=== PATIENT | male | born 1970 | race Caucasian/White ===

== ENCOUNTER 2017-10-16 16:10 | Inpatient (IN) | payer BC ==
[2017-10-16 20:12] LABS: ADD MAN DIFF? NO
[2017-10-16 20:14] LABS: BASOPHILS % 0.2 % (0.0-2.0); EOSINOPHILS # 0.1 10^3/ul (0.0-0.5); EOSINOPHILS % 0.4 % (0.0-7.0); HEMATOCRIT 41.3 % (42.0-52.0); HEMOGLOBIN 14.3 g/dl (14.0-18.0); LYMPHOCYTES % 12.6 % (15.0-51.0); MEAN CORPUSCULAR HEMOGLOBIN 28.8 pg (29.0-33.0); MEAN CORPUSCULAR HGB CONC 34.6 g/dl (32.0-37.0); MEAN CORPUSCULAR VOLUME 83.3 fl (82.0-101.0); MONOCYTES % 6.1 % (0.0-11.0); NEUTROPHIL # 12.9 10^3/ul (1.6-7.5); NEUTROPHILS % 80.4 % (39.0-77.0); PLATELET COUNT 340 10^3/UL (140-415); RED BLOOD COUNT 4.96 10^6/ul (4.70-6.10); RED CELL DISTRIBUTION WIDTH 12.8 % (11.5-14.5)
[2017-10-16] MEDS: morphine 4 MG/ML VIAL IV (20:15)
[2017-10-16] MEDS: SOD CHLORIDE 0.9% 1,000 ML IV (20:15)
[2017-10-16] MEDS: ONDANSETRON 4 MG INJ IV (20:15)
[2017-10-16 20:18] LABS: ADD UMIC YES; UR ASCORBIC ACID NEGATIVE (NEGATIVE); UR BILIRUBIN (Dip) NEGATIVE (NEGATIVE); UR BLOOD (Dip) 1+ mg/dL (NEGATIVE); UR CLARITY CLEAR (CLEAR); UR COLOR YELLOW (YELLOW); UR GLUCOSE (Dip) NEGATIVE (NEGATIVE); UR KETONES (Dip) NEGATIVE (NEGATIVE); UR LEUKOCYTE ESTERASE (Dip) NEGATIVE Leu/ul (NEGATIVE); UR NITRITE (Dip) NEGATIVE (NEGATIVE); UR RBC 1 /HPF (0-5); UR SPECIFIC GRAVITY (Dip) 1.025 (1.003-1.030); UR TOTAL PROTEIN (Dip) NEGATIVE (NEGATIVE); UR UROBILINOGEN (Dip) NEGATIVE (NEGATIVE); UR WBC 1 /HPF (0-5)
[2017-10-16 20:31] LABS: ALANINE AMINOTRANSFERASE 75 IU/L (13-69); ALBUMIN 4.3 g/dl (3.3-4.9); ALBUMIN/GLOBULIN RATIO 1.16; ALKALINE PHOSPHATASE 83 IU/L (42-121); ANION GAP 17 (8-16); ASPARTATE AMINO TRANSFERASE 46 IU/L (15-46); BILIRUBIN,INDIRECT 0.1 mg/dl (0-1.1); BILIRUBIN,TOTAL 0.1 mg/dl (0.2-1.3); BLOOD UREA NITROGEN 19 mg/dl (7-20); CALCIUM 9.3 mg/dl (8.4-10.2); CARBON DIOXIDE 28 mmol/L (21-31); CHLORIDE 103 mmol/L (97-110); CREATININE 0.85 mg/dl (0.61-1.24); GLUCOSE 124 mg/dl (70-220); LIPASE 110 U/L (23-300); POTASSIUM 3.6 mmol/L (3.5-5.1); SODIUM 144 mmol/L (135-144)
[2017-10-16] MEDS: SOD CHLORIDE 0.9% 100 ML (21:02)
[2017-10-16] MEDS: IOHEXOL 300MG/ML 150 ML BTL (21:02)
[2017-10-17] MEDS: VANCOMYCIN 1 GM (PMX) 250 ML IVPB (00:20)
[2017-10-17] MEDS: ONDANSETRON 4 MG INJ IV (00:41)
[2017-10-17] MEDS: morphine 4 MG/ML VIAL IV (00:41)
[2017-10-17] MEDS ORDERED: DOCUSATE SODIUM 100 MG CAP PO (04:00)
[2017-10-17] MEDS ORDERED: ONDANSETRON 4 MG INJ IV (04:00)
[2017-10-17] MEDS ORDERED: ACETAMINOPHEN 325 MG TAB PO (04:00)
[2017-10-17] MEDS ORDERED: NACL 0.9% 3 ML SYG IV (04:00)
[2017-10-17] MEDS ORDERED: BISACODYL (EC) 5 MG TAB PO (04:00)
[2017-10-17 04:30] LABS: LACTIC ACID 0.8 mmol/L (0.5-2.0)
[2017-10-17] MEDS ORDERED: VANCOMYCIN IV PER PHARMACY XX (04:30)
[2017-10-17] MEDS: morphine 2 MG INJ IV (04:55)
[2017-10-17] MEDS: PIPER-TAZO 3.375 GM IV (PMX) 100 ML IVPB ×3 (06:14→17:26)
[2017-10-17] MEDS: HYDROCODONE/APAP (5/325) TAB PO (06:14)
[2017-10-17 06:28] LABS: HEMOGLOBIN A1C 5.8 % (0-5.9)
[2017-10-17 06:46] LABS: CHOL/HDL RATIO 6.9 RATIO; CHOLESTEROL 216 mg/dl (100-200); HDL CHOLESTEROL 31 mg/dl (27-67); LDL CHOLESTEROL,CALCULATED 153 mg/dl; TRIGLYCERIDES 160 mg/dl (0-149)
[2017-10-17] MEDS ORDERED: PROPOFOL 200 MG INJ (07:00)
[2017-10-17] MEDS ORDERED: LIDOCAINE 2% (SDV) 5 ML INJ (07:00)
[2017-10-17 07:05] LABS: INR 0.95; PROTIME 12.8 Sec (11.9-14.9)
[2017-10-17] MEDS: VANCOMYCIN 1 GM 250 ML IVPB (08:07)
[2017-10-17] MEDS ORDERED: MIDAZOLAM 1 MG/ML 2 ML INJ (08:32)
[2017-10-17] MEDS ORDERED: FENTAnyl 50 MCG/ML VIAL (08:32)
[2017-10-17] MEDS ORDERED: PROPOFOL 20 ML (08:32)
[2017-10-17] MEDS ORDERED: ONDANSETRON 4 MG INJ (08:33)
[2017-10-17] MEDS ORDERED: METOCLOPRAMIDE 10 MG INJ (08:33)
[2017-10-17] MEDS: LIDOCAINE 1%/EPI 30 ML INJ (08:51)
[2017-10-17] MEDS ORDERED: MEPERIDINE 25 MG INJ (09:27)
[2017-10-17] MEDS ORDERED: HYDROmorphONE (0.2 MG/ML) 10ML SYG IV ×3 (09:30→09:53)
[2017-10-17] MEDS ORDERED: FENTAnyl 50 MCG/ML VIAL IV ×2 (09:30)
[2017-10-17] MEDS: MEPERIDINE 25 MG INJ IV (10:06)
[2017-10-17] MEDS: HYDROmorphONE (0.2 MG/ML) 10ML SYG IV (10:07)
[2017-10-17] MEDS: VANCOMYCIN 1.25 GM in SOD CHLORIDE 0.9% 250 ML IVPB (20:22)
[2017-10-18] MEDS: PIPER-TAZO 3.375 GM IV (PMX) 100 ML IVPB ×4 (00:40→17:46)
[2017-10-18 05:17] LABS: ADD MAN DIFF? NO
[2017-10-18 05:25] LABS: BASOPHILS % 0.3 % (0.0-2.0); EOSINOPHILS # 0.1 10^3/ul (0.0-0.5); EOSINOPHILS % 0.8 % (0.0-7.0); HEMATOCRIT 37.4 % (42.0-52.0); HEMOGLOBIN 12.6 g/dl (14.0-18.0); LYMPHOCYTES # 2.1 10^3/ul (0.8-2.9); LYMPHOCYTES % 17.9 % (15.0-51.0); MEAN CORPUSCULAR HEMOGLOBIN 28.3 pg (29.0-33.0); MEAN CORPUSCULAR HGB CONC 33.7 g/dl (32.0-37.0); MEAN CORPUSCULAR VOLUME 83.9 fl (82.0-101.0); MEAN PLATELET VOLUME 10.2 fl (7.4-10.4); MONOCYTE # 0.9 10^3/ul (0.3-0.9); MONOCYTES % 7.9 % (0.0-11.0); NEUTROPHIL # 8.6 10^3/ul (1.6-7.5); NEUTROPHILS % 72.8 % (39.0-77.0); PLATELET COUNT 272 10^3/UL (140-415); RED BLOOD COUNT 4.46 10^6/ul (4.70-6.10); RED CELL DISTRIBUTION WIDTH 12.9 % (11.5-14.5)
[2017-10-18 05:25] LABS: WHITE BLOOD COUNT 11.8 10^3/ul (4.8-10.8)
[2017-10-18 06:18] LABS: ALANINE AMINOTRANSFERASE 109 IU/L (13-69); ALBUMIN 3.6 g/dl (3.3-4.9); ALBUMIN/GLOBULIN RATIO 1.09; ALKALINE PHOSPHATASE 97 IU/L (42-121); ANION GAP 16 (8-16); ASPARTATE AMINO TRANSFERASE 57 IU/L (15-46); BILIRUBIN,INDIRECT 0.8 mg/dl (0-1.1); BILIRUBIN,TOTAL 0.8 mg/dl (0.2-1.3); BLOOD UREA NITROGEN 9 mg/dl (7-20); CALCIUM 8.5 mg/dl (8.4-10.2); CARBON DIOXIDE 27 mmol/L (21-31); CHLORIDE 105 mmol/L (97-110); CREATININE 0.92 mg/dl (0.61-1.24); GLUCOSE 85 mg/dl (70-220); POTASSIUM 3.8 mmol/L (3.5-5.1); SODIUM 144 mmol/L (135-144); TOTAL PROTEIN 6.9 g/dl (6.1-8.1)
[2017-10-18] MEDS: VANCOMYCIN 1.25 GM in SOD CHLORIDE 0.9% 250 ML IVPB (08:38)
[2017-10-18] MEDS: ATORVASTATIN 20 MG TAB PO (20:57)
[2017-10-19] MEDS: PIPER-TAZO 3.375 GM IV (PMX) 100 ML IVPB ×3 (01:48→12:00)
== END 2017-10-19 13:43 | disposition home or self-care (01) | DRG 395 ==
LOC: FTE 16:10 → MS1 10-17 04:01
PROC: 0D9P7ZX Drainage of Rectum, Via Natural or Artificial Opening, Diagnostic (ICD-10-PCS; principal; 2017-10-17 08:00)
DX: K61.1 Rectal abscess (principal)
CPT/HCPCS: 36415; 74177; 80053; 80061; 81001; 83036; 83605; 83690; 83735; 84443; 85025; 85610; 85730; 87070; 87075; 87102; 87116; 96361; 96374; 96375; 96376; 99285-25